=== PATIENT | female | born 1990 | race Two or more races ===

== ENCOUNTER → 2025-08-07 | Outpatient (CLI) | payer MEDICAID, SELFPAY ==
--- NOTE | 2025-08-07 08:45 | XR_ITS ---
Examination: Pelvic ultrasound, transabdominal, complete Technique: Transabdominal ultrasound of the pelvis performed using grayscale imaging Date and time of exam: August 07, 2025, 0904 hours INDICATIONS: Pelvic pain beginning 5 months ago, MRI examination 05/04/2024 uterine fundal mass consistent with fibroid degeneration, fibroid tumor removed 1 year ago FINDINGS: Uterus 10.1 cm uterine body area fibroid degeneration 2.7 x 2.4 x 2.4 cm uterine body, endometrial stripe 0.8 cm Right ovary obscured by bowel gas Left ovary 3.0 cm arterial flow 17 mm follicular cyst IMPRESSION: Uterine body area fibroid degeneration 2.7 x 2.4 x 2.4 cm
== END | disposition home or self-care (01) ==
PROVIDERS: PCP Obstetrics & Gynecology; Referring Provider Obstetrics & Gynecology; Visit Provider Obstetrics & Gynecology
DX: R10.20 Pelvic and perineal pain unspecified side (principal); D25.9 Leiomyoma of uterus, unspecified
CPT/HCPCS: 76856